=== PATIENT | male | born 1975 | race Caucasian/White ===

== ENCOUNTER 2017-02-05 08:42 | Emergency (ER) | payer BC ==
[2017-02-05 08:49] VITALS: BP 147/90
[2017-02-05] MEDS ORDERED: Lidocaine 2% W/EPI 1:100,000* 20 ML MDV INJ ONE (09:40)
[2017-02-05] MEDS ORDERED: Clindamycin CAP* 150 MG PO ONE (09:42)
--- NOTE | 2017-02-05 14:06 | UC ---
Bibi Lagos Alfonso, scribed for Neptali Garrison MD on 02/05/17 at 0945 . Skin Complaint HPI - HPI Summary HPI Summary: This patient is a 41 year old male presenting to [facility] c/o a large abscess in the middle back since one week ago. He reports the abscess is erythematous and secondary to a bug bite. He states puss came out of the abscess earlier today. He rates the pain 3/10 in severity. Sx aggravated by movement and alleviated by nothing. He reports back pain, fever, chills, diaphoresis, and disorientation. Denies PMHx of CAD, HTN, and Diabetes Mellitus. - History of Current Complaint Chief Complaint: UCSkin Time Seen by Provider: 02/05/17 09:28 Stated Complaint: BUG BITE Hx Obtained From: Patient Onset/Duration: Sudden Onset, Lasting Weeks - 1 week, Still Present Onset Severity: Moderate Current Severity: Moderate Pain Intensity: 3 Pain Scale Used: 0-10 Numeric Location: Other - Back Character: Redness, Painful Aggravating: Other - Movement Alleviating: Nothing Associated Signs & Symptoms: Positive: Diaphoresis, Fever, Chills, Drainage - Puss - Allergy/Home Medications Allergies/Adverse Reactions: Allergies Allergy/AdvReac Type Severity Reaction Status Date / Time No Known Allergies Allergy Verified 02/05/17 08:50 Review of Systems Constitutional: Fever, Chills, Other - Positive diaphoresis Skin: Other - Positive abscess, drainage puss, and erythematous at back. Musculoskeletal: Arthralgia - Back pain Neurological: Other - Disorientation All Other Systems Reviewed And Are Negative: Yes PMH/Surg Hx/FS Hx/Imm Hx - Surgical History Surgical History: Yes Surgery Procedure, Year, and Place: knee right - Family History Known Family History: Negative: Cardiac Disease, Diabetes - Social History Alcohol Use: Weekly Alcohol Amount: 6 pack Substance Use Type: None Smoking Status (MU): Former Smoker Physical Exam Triage Information Reviewed: Yes Vital Signs: Initial Vital Signs Temp 99 F 02/05/17 08:46 Pulse 89 02/05/17 08:46 Resp 20 02/05/17 08:46 BP 147/90 02/05/17 08:46 Pulse Ox 98 02/05/17 08:46 Vital Signs Reviewed: Yes - Additional Comments The patient is well-nourished in no acute distress and in no acute pain. The skin has a 5x7 cm area of erythema with 4x4cm area of fluctuance at left- side of paravertebral musculature. HEENT: The head is normocephalic and atraumatic. Neck is supple with full range of motion and non-tender. There are no carotid bruits. There is no neck vein distension. Respiratory: Chest is non-tender. Lungs are clear to auscultation and breath sounds are symmetrical and equal. Cardiovascular: Heart is regular rate and rhythm. Abdomen: The abdomen is obese. Musculoskeletal: There is back pain noted. Neurological: Patient is alert and oriented to person, place and time. Psychiatric: The patient has an appropriate affect and does not exhibit any anxiety or depression. Course/Dx - Course Course Of Treatment: A 41-year-old M presents to [facility] with a CC of a large abscess in the middle back since one week ago. He reports back pain, fever, chills, diaphoresis, and disorientation. Incision and Drainage was performed: at the left-side of paravertebral musculature with Topical, Lidocaine - 5 cc of Lidocaine 2% with epinephrine, Scalpel - Blunt dissection with aprox. 33 cc purulent drainage. Loculated septic. Necrotic site debrided, and Gauze - Iodine instilled in the wound via dressing. Hibiclens. Pt will be discharged with procedure recheck at [facility] tomorrow. Pt is agreeable with this plan. - Differential Diagnoses - Skin Complaint Differential Diagnoses: Abscess, Cellulitis - Diagnoses Provider Diagnoses: abscess left back with incision and drainage Procedures - Incision and Drainage Site: left-side of paravertebral musculature. Anesthesia: Topical, Lidocaine - 5 cc of Lidocaine 2% with epinephrine Instrument(s): Scalpel - Blunt dissection with aprox. 33 cc purulent drainage. Loculated septic. Necrotic site debrided. Packing: Gauze - Iodine instilled in the wound via dressing. Kodiiclens. Discharge - Discharge Plan Condition: Stable Disposition: HOME Prescriptions: Clindamycin CAP* [Cleocin 150 MG CAP*] 300 mg PO Q6H #28 cap Hydrocodone-Acetaminophen [Anna 5-325 mg] 1 tab PO QID PRN #20 tab MDD 4 PRN Reason: pain Patient Education Materials: Abscess (ED), Cellulitis (ED) Referrals: Saroj Vargas MD [Primary Care Provider] - [facility] [place] [facility] [Outside] - 1 Day Additional Instructions: Present to [facility] tomorrow for a procedure recheck. The documentation as recorded by the Bibi moore Alfonso accurately reflects the service I personally performed and the decisions made by , Neptali Garrison MD.
== END 2017-02-05 10:54 | disposition home or self-care (01) ==
LOC: UCEAST 08:42
DX: L02.212 Cutaneous abscess of back [any part, except buttock and flank] (principal); Z87.891 Personal history of nicotine dependence
CPT/HCPCS: 10060; 87070; 87205; 99212; A9270-GY; G0463

== ENCOUNTER 2017-02-06 08:11 | Emergency (ER) | payer BC ==
--- NOTE | 2017-02-06 08:58 | UC ---
Skin Complaint HPI - HPI Summary HPI Summary: SEEN HERE YESTERDAY AND HAD ABSCESS LEFT BACK I&D AND PACKED. HERE FOR RECHECK. IS TAKING HIS CLINDAMYCIN PRESCRIBED. FEELS HIS SYSTEMIC SX ARE IMPROVED. NO FEVER. STILL FEELS SOMEWHAT FOGGY AND DISORIENTED BUT BETTER. - History of Current Complaint Chief Complaint: UCSkin Time Seen by Provider: 02/06/17 08:35 Stated Complaint: wound recheck Hx Obtained From: Patient Onset/Duration: Gradual Onset, Lasting Days, Still Present Timing: Constant Onset Severity: Moderate Current Severity: Moderate Pain Intensity: 3 Pain Scale Used: 0-10 Numeric Location: Discrete - LEFT MID BACK Character: Swelling, Pain, Redness, Raised Aggravating: Touch Associated Signs & Symptoms: Positive: Drainage, Tenderness. Negative: Nausea, Syncope, Bruising - Allergy/Home Medications Allergies/Adverse Reactions: Allergies Allergy/AdvReac Type Severity Reaction Status Date / Time No Known Allergies Allergy Verified 02/05/17 08:50 Review of Systems Constitutional: Fever - BUT BETTER NOW Skin: Other - ABSCESS ON BACK Respiratory: Negative Cardiovascular: Negative Gastrointestinal: Negative Neurological: Other - DISORIENTED All Other Systems Reviewed And Are Negative: Yes PMH/Surg Hx/FS Hx/Imm Hx Previously Healthy: Yes - Surgical History Surgical History: Yes Surgery Procedure, Year, and Place: knee right - Family History Known Family History: Negative: Cardiac Disease, Diabetes - Social History Alcohol Use: Weekly Alcohol Amount: 6 pack Substance Use Type: None Smoking Status (MU): Former Smoker Physical Exam Triage Information Reviewed: Yes Appearance: Well-Appearing, No Pain Distress, Well-Nourished Vital Signs: Initial Vital Signs Temp 96.2 F 02/06/17 08:12 Pulse 81 02/06/17 08:12 Resp 18 02/06/17 08:12 BP 132/80 02/06/17 08:12 Pulse Ox 99 02/06/17 08:12 Vital Signs Reviewed: Yes Eyes: Positive: Conjunctiva Clear ENT: Positive: Hearing grossly normal Neck: Positive: Supple Respiratory: Positive: No respiratory distress, No accessory muscle use Cardiovascular: Positive: Pulses Normal Abdomen Description: Positive: Soft Musculoskeletal: Positive: No Edema Neurological: Positive: Alert Psychological: Positive: Age Appropriate Behavior Skin: Positive: Other - 10CM X 9CM AREA OF ERYTHEMA WITH 4CM X 4CM AREA OR NECROTIC TISSUE. PACKING IN PLACE. AFFECTED SKIN IS THICKENED, INDURATED AND BLISTERING Course/Dx - Diagnoses Provider Diagnoses: WORSENING BACK ABSCESS - Physician Notification/Consults Discussed Patient Care With: Neptali Garrison - TO [facility] BY PRIVATE CAR Instructed by Provider To: MD Will See In ED Discharge - Discharge Plan Condition: Stable Disposition: AGAINST MEDICAL ADVICE Referrals: Saroj Vargas MD [Primary Care Provider] -
[2017-02-06 09:03] VITALS: BP 137/90
== END 2017-02-06 09:01 | disposition left against medical advice (07) ==
LOC: UCEAST 08:11
DX: L02.212 Cutaneous abscess of back [any part, except buttock and flank] (principal); Z87.891 Personal history of nicotine dependence
CPT/HCPCS: 99212; G0463

== ENCOUNTER 2017-02-06 09:24 | Emergency (ER) | payer BC ==
[2017-02-06] MEDS ORDERED: NS 0.9% 1000 ML* 1,000 ML IV ONE (09:34)
[2017-02-06] MEDS ORDERED: Clindamycin 600 MG IVPREMIX(* 600 MG/50 ML SDV IV ONE (09:39)
[2017-02-06 10:49] LABS: Hematocrit 46 % (42-52); Hemoglobin 15.4 g/dl (14.0-18.0); Mean Corpuscular HGB Conc 34 g/dl (31-36); Mean Corpuscular Hemoglobin 31 pg (27-31); Mean Corpuscular Volume 91 fL (80-94); Mean Platelet Volume 8 um3 (7.4-10.4); Red Blood Count 5.04 10^6/ul (4.0-5.4); Red Cell Distribution Width 14 % (10.5-15); White Blood Count 10.5 10^3/ul (3.5-10.8)
[2017-02-06 11:04] LABS: Albumin 4.1 g/dL (3.2-5.2); BUN/Creatinine Ratio 12.2 (8-20); Calcium 9.2 mg/dL (8.6-10.3); EGFR African American 119.6 (>60); Globulin 3.3 g/dL (2-4); Potassium 3.7 mmol/L (3.5-5.0); Total Bilirubin 0.7 mg/dL (0.2-1.0); Total Protein 7.4 g/dL (6.4-8.9)
--- NOTE | 2017-02-06 12:21 | RAD ---
HISTORY: Abscess COMPARISONS: None TECHNIQUE: Multiple transverse and longitudinal ultrasound images were obtained of the area of clinical abnormality using grayscale and color Doppler imaging FINDINGS: There is shadowing material is noted consistent with the history of wound packing. There is mild edema of the subcutaneous soft tissues. There is no loculated fluid collection to suggest abscess. IMPRESSION: FINDINGS CONSISTENT WITH THE HISTORY OF WOUND PACKING. THERE IS NO LOCULATED FLUID COLLECTION TO SUGGEST ABSCESS.
--- NOTE | 2017-02-06 12:27 | ED ---
Skin Complaint - History of Current Complaint Chief Complaint: EDGeneral Time Seen by Provider: 02/06/17 10:13 Stated Complaint: ABSCESS Pain Intensity: 3 - Allergy/Home Medications Allergies/Adverse Reactions: Allergies Allergy/AdvReac Type Severity Reaction Status Date / Time No Known Allergies Allergy Verified 02/05/17 08:50 PMH/Surg Hx/FS Hx/Imm Hx GI History: Reports: Hx Ulcer - Surgical History Surgery Procedure, Year, and Place: knee right Infectious Disease History: No Infectious Disease History: Denies: Hx Clostridium Difficile, Hx Hepatitis, Hx Human Immunodeficiency Virus (HIV), Hx of Known/Suspected MRSA, Hx Shingles, Hx Tuberculosis, Hx Known/ Suspected VRE, Hx Known/Suspected VRSA, History Other Infectious Disease, Traveled Outside the [place] in Last 30 Days - Family History Known Family History: Negative: Cardiac Disease, Diabetes - Social History Alcohol Use: Weekly Alcohol Amount: 6 pack Substance Use Type: Reports: None Smoking Status (MU): Former Smoker Physical Exam Vital Signs On Initial Exam: Initial Vitals Temp Pulse Resp Pulse Ox 97.7 F 84 20 99 02/06/17 09:26 02/06/17 09:26 02/06/17 09:26 02/06/17 09:26 - Oneal Coma Scale Coma Scale Total: 15 Diagnostics - Vital Signs Vital Signs Temp Pulse Resp BP Pulse Ox 02/06/17 11:30 72 105/75 100 02/06/17 11:00 75 103/61 97 02/06/17 10:46 97.8 F 76 16 108/62 99 02/06/17 10:33 61 97 02/06/17 10:31 108/57 02/06/17 09:28 97.4 F 86 20 129/80 99 02/06/17 09:26 97.7 F 84 20 99 - Laboratory Lab Results: Lab Results 02/06/17 02/06/17 02/06/17 Range/Units 10:30 10:30 10:30 WBC 10.5 (3.5-10.8) 10^3/ul RBC 5.04 (4.0-5.4) 10^6/ul Hgb 15.4 (14.0-18.0) g/dl Hct 46 (42-52) % MCV 91 (80-94) fL MCH 31 (27-31) pg MCHC 34 (31-36) g/dl RDW 14 (10.5-15) % Plt Count 217 (150-450) 10^3/ul MPV 8 (7.4-10.4) um3 Neut % (Auto) 77.5 (38-83) % Lymph % (Auto) 9.0 L (25-47) % [place] % (Auto) 12.1 H (1-9) % Eos % (Auto) 1.2 (0-6) % Baso % (Auto) 0.2 (0-2) % Absolute Neuts (auto) 8.2 H (1.5-7.7) 10^3/ul Absolute Lymphs (auto) 0.9 L (1.0-4.8) 10^3/ul Absolute Monos (auto) 1.3 H (0-0.8) 10^3/ul Absolute Eos (auto) 0.1 (0-0.6) 10^3/ul Absolute Basos (auto) 0 (0-0.2) 10^3/ul Absolute Nucleated RBC 0.01 10^3/ul Nucleated RBC % 0.1 Sodium 133 (133-145) mmol/L Potassium 3.7 (3.5-5.0) mmol/L Chloride 100 L (101-111) mmol/L Carbon Dioxide 25 (22-32) mmol/L Anion Gap 8 (2-11) mmol/L BUN 11 (6-24) mg/dL Creatinine 0.90 (0.67-1.17) mg/dL Est GFR ( Amer) 119.6 (>60) Est GFR (Non-Af Amer) 93.0 (>60) BUN/Creatinine Ratio 12.2 (8-20) Glucose 108 H (70-100) mg/dL Lactic Acid 0.7 (0.5-2.0) mmol/L Calcium 9.2 (8.6-10.3) mg/dL Total Bilirubin 0.70 (0.2-1.0) mg/dL AST 15 (13-39) U/L ALT 20 (7-52) U/L Alkaline Phosphatase 60 (34-104) U/L Total Protein 7.4 (6.4-8.9) g/dL Albumin 4.1 (3.2-5.2) g/dL Globulin 3.3 (2-4) g/dL Albumin/Globulin Ratio 1.2 (1-3) Result Diagrams: 02/06/17 10:30 02/06/17 10:30 Lab Statement: Any lab studies that have been ordered have been reviewed, and results considered in the medical decision making process. - Ultrasound No standard instances Ultrasound Interpretation: Positive (See Comments) - FINDINGS CONSISTENT WITH THE HISTORY OF WOUND PACKING. THERE IS NO LOCULATED FLUID COLLECTION TO SUGGEST ABSCESS. Ultrasound Interpretation Completed By: Radiologist Course/Dx - Diagnoses Provider Diagnoses: Cellulitis of back Discharge - Discharge Plan Condition: Stable Disposition: HOME Prescriptions: Probiotic Product [Probiotic Daily] 1 cap PO DAILY #15 cap Patient Education Materials: Cellulitis (ED) Forms: *Work Release Additional Instructions: Continue antibiotic as directed until entire dose finished. Take probiotic in between doses to help replenish normal grey. Drink plenty of fluids and rest. Keep area clean and dry. Do not cover. Apply triple antibiotic ointment as desired. Follow up tomorrow or thursday02/08/17 with urgent care or ED to ensure improvement. IF symptoms worsen or new symptoms developing as we discussed please seek medical attention promptly. Follow up with PCP.
[2017-02-06 13:26] VITALS: BP 133/71
== END 2017-02-06 13:51 | disposition home or self-care (01) ==
LOC: ED 09:24
DX: L03.312 Cellulitis of back [any part except buttock and flank] (principal); Z87.891 Personal history of nicotine dependence
CPT/HCPCS: 36415; 76705; 80053; 83605; 85025; 87040; 99284